=== PATIENT | female | born 1945 | race Caucasian/White ===

== ENCOUNTER 2022-11-09 09:58 | Inpatient (IN) | payer MEDICARE, SELFPAY ==
[2022-11-09] VITALS (10 sets, daily range): BP systolic 86–105; BP diastolic 48–61; PULSE 71–99; RESP 16–22; TEMP 36.2–36.8; O2SAT 90–95; BMI 34.3; BMI 35.2
--- NOTE | 2022-11-09 10:17 | XR_ITS ---
WS: [id number] Exam: XR chest 1V portable [id number] Date/Time of Exam: 11/09/2022 10:17 AM Reason For Exam: epigastric pain No priors. The lungs are fully inflated and clear. Areas of plaque atelectasis in both lower lung zones. Mild ca rdiac enlargement. No pleural effusions. The mediastinum is normal in contour. Surgical clips seen al nessa the left superior mediastinum. Bony elements are intact. XR/XR chest 1V portable [id number] IMPRESSION: 1. No acute cardiopulmonary finding. Mild cardiac enlargement.
[2022-11-09 10:34] LABS: Basophils # 0.1 10^3/uL (0.0-0.1); Basophils % 0.3 %; Eosinophils % 0.2 %; Hematocrit 35.8 % (37.0-47.0); Hemoglobin 11.4 g/dL (11.5-15.3); Mean Corpuscular HGB Conc 31.8 g/dL (30.0-36.0); Mean Corpuscular Hemoglobin 27.9 pg (28.0-34.0); Mean Corpuscular Volume 87.5 fl (81-99); Mean Platelet Volume 9.4 fL (7.4-10.4); Monocytes # 0.3 10^3/uL (0.2-0.9); Monocytes % 1.4 %; Neutrophils # 18.17 10^3/uL (1.8-7.7); Nucleated Red Blood Cells % 0.1 %; Platelet Count 650 10^3/cmm (130-400); Red Blood Count 4.09 10^6/uL (4.1-5.3); Red Cell Distribution Width 15.7 % (12.1-15.1); White Blood Count 19.7 10^3/uL (4.0-10.0)
--- NOTE | 2022-11-09 10:40 | ECG_ITS ---
[facility] Test Date: 2022-11-09 Pat Name: Carmen Bajwa Department: Room: Gender: Female Radio Journalist: : 1945 Requested By: Virgil Hendrix Order Number: [id number] Yanira MD: Dulce Leo M.D. Measurements Intervals [place] Rate: 86 P: 27 MO: 171 QRS: 0 QRSD: 104 T: 67 QT: 347 QTc: 415 Interpretive Statements SINUS RHYTHM ANTEROSEPTAL MYOCARDIAL INFARCTION , OF INDETERMINATE AGE [40+ ms Q WAVE IN V1-V4] No previous ECG available for comparison Electronically Signed On 11-09-2022 15:41:25 [employer] CARRIER ASSISTANT by Dulce Leo M.D. [id number]
[2022-11-09 10:48] LABS: Troponin(5th) Baseline 39 ng/L (0-10)
[2022-11-09 10:49] LABS: Alanine Aminotransferase 83 U/L (0-33); Albumin Level 2.5 g/dL (3.5-5.2); Alkaline Phosphatase 307 U/L (35-105); Anion Gap 16.2 (5-19); Aspartate Amino Transferase 45 U/L (0-32); Blood Urea Nitrogen 18 mg/dL (8-23); Calcium 9.2 mg/dL (8.5-10.5); Carbon Dioxide 26 mmol/L (22-29); Chloride 100 mmol/L (98-107); Globulin 3.6 g/dL (1.3-4.6); Glucose 81 mg/dL (65-115); Lipase 38 U/L (13-60); Osmolality Calculated 287 mOsm/kg (285-295); Potassium 4.2 mmol/L (3.5-5.1); Sodium 138 mmol/L (136-145); Total Bilirubin 0.7 mg/dL (0.15-1.2); Total Protein 6.1 g/dL (6.6-8.7)
--- NOTE | 2022-11-09 11:01 | CT_ITS ---
WS: [id number] CT ABDOMEN PELVIS TECHNIQUE: Contrast-enhanced CT of the abdomen and pelvis with coronal and sagittal reformatted image s. CLINICAL INFORMATION: Epigastric and LUQ abdominal pain with fever COMPARISON: None. DLP: 933.[address] scans at [facility] use at least one of these dose optimization techniques: automated e xposure control; mA and/or kV adjustment per patient size (includes targeted exams where dose is matc hed to clinical indication); or iterative reconstruction. FINDINGS: Multiple heterogeneous enhancing lesions in the LEFT hepatic lobe extending into the medial segment o f the RIGHT hepatic lobe suspicious for metastatic disease. Largest lesions measure approximately 3 t o 4 cm. In addition there is associated thrombosis involving the LEFT portal vein extending to the po rtal confluence. RIGHT portal vein appears patent. Findings likely due to tumor thrombus. Hepatomegaly. Spleen appears normal. Small esophageal hiatal hernia. Subsegmental atelectasis in the RIGHT middle lobe and RIGHT lower lobe. Lung bases are otherwise well aerated. Slight atelectasis in the lingula and LEFT lower lobe. Cardiomegaly. Fluid distended gallbladder otherwise normal in appearance. Fatty atrophy of the pancre as. Distal common bile duct appears normal. A few prominent enhancing lymph nodes in the bull hepati s largest measuring 8 to 9 mm. Normal caliber abdominal aorta. Celiac and SMA appear patent. Adrenal glands are normal. Normal renal parenchymal enhancement. No hydronephrosis. Sigmoid diverticulosis with mild colonic thickening and slight surrounding induration suspicious for mild or early diverticulitis. Trace amount of fluid and edema in the pelvis. No evidence of high-grad e small or large bowel obstruction. Tiny fat-containing umbilical hernia. Grade 1 anterolisthesis L4 on L5. Mild chronic anterior wedging lower thoracic and upper lumbar spine. No suspicious lytic or bl astic bony lesions. Small sclerotic focus in the LEFT sacrum likely benign bone island. No periaortic or retroperitoneal lymphadenopathy. No inguinal or pelvic lymphadenopathy. CT/CT abdomen pelvis w con* [id number] IMPRESSION: 1. Numerous heterogeneously enhancing lesions within the LEFT hepatic lobe ext ending into the medial segment RIGHT hepatic lobe suspicious for metastatic dis ease. 2. Occlusive thrombus involving the LEFT portal vein extending to the portal c onfluence with peripheral enhancement suspicious for tumor thrombus. 3. A few prominent lymph nodes in the bull hepatis with enhancement the large st measuring 8 to 9 mm. Recommend metastatic workup. 4. Small esophageal hiatal hernia. 5. Sigmoid diverticulosis with mild sigmoid colon thickening and slight surrou nding induration suspicious for mild or early diverticulitis. Trace free fluid in the pelvis. 6. No other suspicious findings. Notified MITUL Graham at 11/09/2022 12:47 PM.
--- NOTE | 2022-11-09 11:10 | W.ED.ABDPA2 ---
Documented by User: MITUL Graham 11/09/22 16:43 HPI - Abdominal Pain General: Chief Complaint: Abdominal Pain Stated Complaint: n/v/d Time Seen by Provider: 11/09/22 10:16 History of Present Illness: Patient is a 69-year-old female comes to the ED with abdominal pain. Symptoms started approximately 2 to 3 weeks ago. Abdominal pain is located in the epigastric region and radiates to her back and left upper quadrant of abdomen. She endorses some nausea but denies any episodes of emesis. Endorses malaise. She rates her abdominal pain currently a 5 out of 10. She has a decreased appetite but has been trying to drink plenty of fluids and staying hydrated. Her symptoms feel like they have worsened over the past 3 to 4 days. She feels very weak and fatigued. She has never had abdominal pain like this before. She reports chronic diarrhea but but denies any change in stool or frequency of stool. She was seen at clinic on October 29 and was diagnosed with a UTI and was put on an antibiotic. Past surgical history of a hysterectomy. Denies any other past abdominal surgeries. Patient uses 2 L of oxygen at night with CPAP but does not use or need oxygen during the day. Associated Symptoms: Reports nausea; Denies chills, constipation, diarrhea, dysuria, fever(s), hematochezia, hematuria and vomiting Review of Systems Const: Reports: fatigue; Denies: fever(s) or chills Eyes: Denies: change in vision or eye discomfort ENMT: Denies: throat pain, odynophagia, nasal discharge or nasal congestion Card: Denies: chest pain, palpitations, edema, swelling of feet/ankles, dyspnea on exertion or orthopnea Resp: Denies: dyspnea, productive cough or non-productive cough GI: Reports: abdominal pain and nausea; Denies: vomiting, diarrhea, constipation or hematochezia : Denies: flank pain, dysuria or hematuria Musc: Denies: neck pain, back pain or extremity swelling Skin/Breast: Denies: rash or new lesions Neuro: Denies: headache(s), numbness in extremities or weakness in extremities PFS ED PFSH: Medical History (Updated 11/14/22 @ 00:01 by PETRA Jhaveri) Adrenal insufficiency Chronic steroid use Depression Diverticulitis GERD (gastroesophageal reflux disease) Hypertension Lesion of liver ROCK (obstructive sleep apnea) Portal vein thrombosis Portal vein thrombosis Ulcerative colitis Surgical History (Updated 11/14/22 @ 00:01 by PETRA Jhaveri) H/O partial thyroidectomy History of hysterectomy Physical Exam Const: COMMON NORMALS: patient oriented x3 and alert GENERAL APPEARANCE: cooperative HENMT: COMMON NORMALS: normocephalic HEAD & SCALP: normocephalic MOUTH: Normal oral and palatal mucosa present THROAT: posterior oropharynx normal and uvula midline Neck/C-Spine: COMMON NORMALS: supple GENERAL: Yes normal visual inspection Resp: COMMON NORMALS: normal respiratory effort, No retractions, No use of accessory muscles and clear to auscultation bilaterally AUSCULTATION: clear to auscultation bilaterally Cardio: COMMON NORMALS: regular rate, regular rhythm, S1 normal heart sound present, S2 normal heart sound present, No gallops present (Cardio), No clicks present (Cardio), No murmurs present (Cardio) and Peripheral pulses 2+ throughout RATE: regular rate RHYTHM: regular rhythm HEART SOUNDS: S1 normal heart sound present and S2 normal heart sound present PERIPHERAL PULSES: Peripheral pulses 2+ throughout GI: COMMON NORMALS: Normal to inspection, nondistended, normoactive bowel sounds present, Soft to palpation and no masses AUSCULTATION: Yes normoactive bowel sounds PALPATION: Yes Soft to palpation and Yes Tenderness to palpation present (GI) Details: LUQ and other (Epigastric) : COMMON NORMALS: Yes no CVA tenderness BLADDER/KIDNEY EXAM: Yes no CVA tenderness Back/Pelvis: COMMON NORMALS: no CVA tenderness Extremity: COMMON NORMALS: normal to inspection Neuro: COMMON NORMALS: patient oriented x3 SENSORIUM/ORIENTATION: Yes alert GAIT: Yes Normal gait present Skin: GENERAL SKIN EXAM: dry skin Course Vital Signs: Vital signs: Vital Signs Temperature 98.4 F 11/13/22 15:02 Pulse Rate 60 11/13/22 15:31 Respiratory Rate 20 H 11/13/22 15:02 Blood Pressure 145/75 11/13/22 15:02 Pulse Oximetry 80 L 11/13/22 15:02 Oxygen Delivery Me thod 11/13/22 13:20 Oxygen Flow Rate 2 11/13/22 11:25 Fraction of Inspir ed Oxygen 21 11/12/22 09:56 MDM - Abdominal Pain Medical Decision Making Patient is a 77-year-old female comes to the ED with abdominal pain. Symptoms have been going on now for approximately 2 to 3 weeks and yesterday she developed a fever. Endorses nausea but denies any vomiting, dysuria, hematuria. Blood pressure low at 86/54 and she is requiring 2 L of oxygen here in the ED and O2 saturation is around 92%. Rest of vitals are stable. Patient is sitting comfortably in exam bed does not appear in any distress. She does have some tenderness to palpation of the epigastric and left upper quadrant of the abdomen. Rest of exam is benign. Blood cell count 19.7. Lactic 2.9. First troponin 39 and 2-hour troponin was 41. Chest x-ray shows no acute findings. EKG showed no acute infarcts. CT of abdomen pelvis showed numerous lesions of left hepatic lobe which is suspicious for metastatic disease. She also has occlusive thrombus involving the left portal vein extending to the portal confluence suspicious for tumor thrombus. CT also noted sigmoid diverticulosis with mild sigmoid colon thickening which is suspicious for mild or early diverticulitis. I discussed patient case with Dr. Alvarenga and patient is going to be admitted to hospital for further treatment and evaluation. Lab Data I reviewed the patient's lab results. 11/09/22 10:24 11/09/22 10:24 Labs/Radiology: Radiology Impressions Chest X-Ray 11/09/22 10:17 IMPRESSION: 1. No acute cardiopulmonary finding. Mild cardiac enlargement. Abdomen/Pelvis CT 11/09/22 11:01 IMPRESSION: 1. Numerous heterogeneously enhancing lesions within the LEFT hepatic lobe extending into the medial segment RIGHT hepatic lobe suspicious for metastatic disease. 2. Occlusive thrombus involving the LEFT portal vein extending to the portal confluence with peripheral enhancement suspicious for tumor thrombus. 3. A few prominent lymph nodes in the bull hepatis with enhancement the largest measuring 8 to 9 mm. Recommend metastatic workup. 4. Small esophageal hiatal hernia. 5. Sigmoid diverticulosis with mild sigmoid colon thickening and slight surrounding induration suspicious for mild or early diverticulitis. Trace free fluid in the pelvis. 6. No other suspicious findings. Notified MITUL Graham at 11/09/2022 12:47 PM. Liver Biopsy Ultrasound 11/13/22 10:00 IMPRESSION: 1. Uncomplicated liver biopsy of the mass in the LEFT lobe of the liver. 2. Specimen placed in formalin for pathology. Laboratory Results WBC 19.7 10^3/uL (4.0-10.0) H 11/09/22 10:24 RBC 4.09 10^6/uL (4.1-5.3) L 11/09/22 10:24 Hgb 11.4 g/dL (11.5-15.3) L 11/09/22 10:24 Hct 35.8 % (37.0-47.0) L 11/09/22 10:24 MCV 87.5 fl (81-99) 11/09/22 10:24 MCH 27.9 pg (28.0-34.0) L 11/09/22 10:24 MCHC 31.8 g/dL (30.0-36.0) 11/09/22 10:24 RDW 15.7 % (12.1-15.1) H 11/09/22 10:24 Plt Count 650 10^3/cmm (130-400) H 11/09/22 10:24 MPV 9.4 fL (7.4-10.4) 11/09/22 10:24 Neut % (Auto) 92.0 % 11/09/22 10:24 Lymph % (Auto) 5.0 % 11/09/22 10:24 [place] % (Auto) 1.4 % 11/09/22 10:24 Eos % (Auto) 0.2 % 11/09/22 10:24 Baso % (Auto) 0.3 % 11/09/22 10:24 Neut # (Auto) 18.17 10^3/uL (1.8-7.7) H 11/09/22 10:24 Lymph # (Auto) 1.0 10^3/uL (0.8-4.8) 11/09/22 10:24 [place] # (Auto) 0.3 10^3/uL (0.2-0.9) 11/09/22 10:24 Eos # (Auto) 0.0 10^3/uL (0.0-0.8) 11/09/22 10:24 Baso # (Auto) 0.1 10^3/uL (0.0-0.1) 11/09/22 10:24 Nucleated RBC % (auto) 0.1 % 11/09/22 10:24 Nucleated RBCs # 0.0 /100WBC 11/09/22 10:24 PT 15.20 SECONDS (12.1-14.9) H 11/09/22 13:31 PT Cancelled 11/09/22 13:31 INR 1.16 (0.8-1.2) 11/09/22 13:31 INR Cancelled 11/09/22 13:31 APTT 35.1 SECONDS (23.9-36.7) 11/09/22 13:31 Sodium 138 mmol/L (136-145) 11/09/22 10:24 Potassium 4.2 mmol/L (3.5-5.1) 11/09/22 10:24 Chloride 100 mmol/L (98-107) 11/09/22 10:24 Carbon Dioxide 26 mmol/L (22-29) 11/09/22 10:24 Anion Gap 16.2 (5-19) 11/09/22 10:24 BUN 18 mg/dL (8-23) 11/09/22 10:24 Creatinine 0.9 mg/dL (0.5-0.9) 11/09/22 10:24 GFR Calculation Not Reportable 11/09/22 10:24 Glucose 81 mg/dL (65-115) 11/09/22 10:24 Calculated Osmolality 287 mOsm/kg (285-295) 11/09/22 10:24 Lactic Acid 2.9 mmol/L (0.5-2.2) H 11/09/22 10:24 Lactic Acid (Sepsis) 1.7 mmol/L (0.5-2.2) 11/09/22 13:31 Calcium 9.2 mg/dL (8.5-10.5) 11/09/22 10:24 Iron 20 ug/dL (37-145) L 11/09/22 10:24 Iron 21 ug/dL (37-145) L 11/09/22 10:24 TIBC 174 mcg/dl 11/09/22 10:24 % Saturation 11.4 % (20-50) L 11/09/22 10:24 Unsat Iron Binding 154 ug/dL (112-347) 11/09/22 10:24 Ferritin 1882 ng/mL (15-150) H 11/09/22 10:24 Total Bilirubin 0.7 mg/dL (0.15-1.2) 11/09/22 10:24 GGT 126 U/L (5-36) H 11/09/22 10:24 AST 45 U/L (0-32) H 11/09/22 10:24 ALT 83 U/L (0-33) H 11/09/22 10:24 Alkaline Phosphatase 307 U/L (35-105) H 11/09/22 10:24 Troponin T Baseline 39 ng/L (0-10) H 11/09/22 10:24 Troponin T 120 Minute 41.11 ng/L (0-10) H 11/09/22 12:20 Delta Troponin T 2.11 ABS# (0-10) 11/09/22 12:20 Total Protein 6.1 g/dL (6.6-8.7) L 11/09/22 10:24 Albumin 2.5 g/dL (3.5-5.2) L 11/09/22 10:24 Globulin 3.6 g/dL (1.3-4.6) 11/09/22 10:24 Triglycerides 126 mg/dL (0-150) 11/09/22 10:24 Cholesterol 90 mg/dL (0-200) 11/09/22 10:24 LDL Cholesterol, Calc 43 mg/dL (50-129) L 11/09/22 10:24 HDL Cholesterol 22 mg/dL (60-100) L 11/09/22 10:24 LDL/HDL Ratio 1.95 RATIO (0.00-3.22) 11/09/22 10:24 Cholesterol/HDL Ratio 4.09 mg/dL (0.0-4.40) 11/09/22 10:24 Lipase 38 U/L (13-60) 11/09/22 10:24 Tumor Marker AFP 2.5 ng/mL (0-8.3) 11/09/22 10:24 Carcinoembryonic Ag 2.3 ng/mL (0.0-4.7) 11/09/22 10:24 CA 19-9 Antigen 4.91 U/mL (0-35) 11/09/22 10:24 Procalcitonin 2.94 ng/mL (0-0.5) H 11/09/22 10:24 TSH 8.71 uIU/mL (0.27-4.20) H 11/09/22 10:24 Urine Color Barb (Yellow) 11/09/22 12:52 Urine Appearance Cloudy (CLEAR) A 11/09/22 12:52 Urine pH 5 (5-7) 11/09/22 12:52 Ur Specific [place] 1.000 (1.005-1.030) L 11/09/22 12:52 Urine Protein 1+ (Negative) H 11/09/22 12:52 Urine Glucose (UA) Norm (Normal) 11/09/22 12:52 Urine Ketones 1+ (Negative) H 11/09/22 12:52 Urine Blood Trace (Negative) H 11/09/22 12:52 Urine Nitrate Negative (Negative) 11/09/22 12:52 Urine Bilirubin 1+ (Negative) H 11/09/22 12:52 Urine Urobilinogen 1 mg/dL (Negative) H 11/09/22 12:52 Ur Leukocyte Esterase Trace (Negative) H 11/09/22 12:52 Urine RBC 0-4 /hpf (0-2) H 11/09/22 12:52 Urine WBC 5-10 /hpf (0-5) H 11/09/22 12:52 Ur Squamous Epith Cells 5-10 /hpf (0-5) H 11/09/22 12:52 Amorphous Sediment Not Reportable 11/09/22 12:52 Urine Bacteria Trace /hpf (NONE) 11/09/22 12:52 Hepatitis A IgM Ab Non-reactive (Nonreactive) 11/09/22 13:31 Hep Bs Antigen Non-reactive (Nonreactive) 11/09/22 13:31 Hep Bs Antibody 3.5 (11.5-1000) L 11/09/22 13:31 Hep B Core Total Ab Non-reactive (Nonreactive) 11/09/22 13:31 Hepatitis C Antibody Non-reactive (Nonreactive) 11/09/22 13:31 EKG Data EKG 1: EKG interpretation date: 11/09/22 Interpretation: Sinus rhythm, 83 bpm, no ST segment elevation or depression seen. Discharge Plan Discharge Patient Disposition: Placed in Observation Admit Provider: Jessica Longoria Clinical Impression: Diverticulitis, Lesion of liver, Portal vein thrombosis Discharge Diet: Cardiac Discharge Activity: Increase activity as tolerated Sign Out Sign Out Data: Patient Sign Out occurred on 11/09/22 at 13:09. Patient's care was discussed, and care was transferred from to Giovanny Alvarenga MD. Coding Level of Care Code ED Health And Physical Education Teacher for Chg Fwd Exam Comprehensive Documented by User: Giovanny Alvarenga MD 11/24/22 18:50 HPI - Abdominal Pain General: Chief Complaint: Abdominal Pain Stated Complaint: n/v/d Time Seen by Provider: 11/09/22 10:16 PFSH ED PFSH: Medical History (Updated 11/14/22 @ 00:01 by PETRA Jhaveri) Adrenal insufficiency Chronic steroid use Depression Diverticulitis GERD (gastroesophageal reflux disease) Hypertension Lesion of liver ROCK (obstructive sleep apnea) Portal vein thrombosis Portal vein thrombosis Ulcerative colitis Surgical History (Updated 11/14/22 @ 00:01 by PETRA Jhaveri) H/O partial thyroidectomy History of hysterectomy Course Vital Signs: Vital signs: Vital Signs Temperature 98.4 F 11/13/22 15:02 Pulse Rate 60 11/13/22 15:31 Respiratory Rate 20 H 11/13/22 15:02 Blood Pressure 145/75 11/13/22 15:02 Pulse Oximetry 80 L 11/13/22 15:02 Oxygen Delivery Me thod 11/13/22 13:20 Oxygen Flow Rate 2 11/13/22 11:25 Fraction of Inspir ed Oxygen 21 11/12/22 09:56 MDM - Abdominal Pain Medical Decision Making Patient is a 77-year-old female comes to the ED with abdominal pain. Symptoms have been going on now for approximately 2 to 3 weeks and yesterday she developed a fever. Endorses nausea but denies any vomiting, dysuria, hematuria. Blood pressure low at 86/54 and she is requiring 2 L of oxygen here in the ED and O2 saturation is around 92%. Rest of vitals are stable. Patient is sitting comfortably in exam bed does not appear in any distress. She does have some tenderness to palpation of the epigastric and left upper quadrant of the abdomen. Rest of exam is benign. Blood cell count 19.7. Lactic 2.9. First troponin 39 and 2-hour troponin was 41. Chest x-ray shows no acute findings. EKG showed no acute infarcts. CT of abdomen pelvis showed numerous lesions of left hepatic lobe which is suspicious for metastatic disease. She also has occlusive thrombus involving the left portal vein extending to the portal confluence suspicious for tumor thrombus. CT also noted sigmoid diverticulosis with mild sigmoid colon thickening which is suspicious for mild or early diverticulitis. I discussed patient case with Dr. Alvarenga and patient is going to be admitted to hospital for further treatment and evaluation. I discussed this case with MITUL Graham. I reviewed documentation, labs, imaging. Giovanny Alvarenga MD Emergency Medicine Lab Data 11/09/22 10:24 11/09/22 10:24 Labs/Radiology: Radiology Impressions Chest X-Ray 11/09/22 10:17 IMPRESSION: 1. No acute cardiopulmonary finding. Mild cardiac enlargement. Abdomen/Pelvis CT 11/09/22 11:01 IMPRESSION: 1. Numerous heterogeneously enhancing lesions within the LEFT hepatic lobe extending into the medial segment RIGHT hepatic lobe suspicious for metastatic disease. 2. Occlusive thrombus involving the LEFT portal vein extending to the portal confluence with peripheral enhancement suspicious for tumor thrombus. 3. A few prominent lymph nodes in the bull hepatis with enhancement the largest measuring 8 to 9 mm. Recommend metastatic workup. 4. Small esophageal hiatal hernia. 5. Sigmoid diverticulosis with mild sigmoid colon thickening and slight surrounding induration suspicious for mild or early diverticulitis. Trace free fluid in the pelvis. 6. No other suspicious findings. Notified MITUL Graham at 11/09/2022 12:47 PM. Liver Biopsy Ultrasound 11/13/22 10:00 IMPRESSION: 1. Uncomplicated liver biopsy of the mass in the LEFT lobe of the liver. 2. Specimen placed in formalin for pathology. Laboratory Results WBC 19.7 10^3/uL (4.0-10.0) H 11/09/22 10:24 RBC 4.09 10^6/uL (4.1-5.3) L 11/09/22 10:24 Hgb 11.4 g/dL (11.5-15.3) L 11/09/22 10:24 Hct 35.8 % (37.0-47.0) L 11/09/22 10:24 MCV 87.5 fl (81-99) 11/09/22 10:24 MCH 27.9 pg (28.0-34.0) L 11/09/22 10:24 MCHC 31.8 g/dL (30.0-36.0) 11/09/22 10:24 RDW 15.7 % (12.1-15.1) H 11/09/22 10:24 Plt Count 650 10^3/cmm (130-400) H 11/09/22 10:24 MPV 9.4 fL (7.4-10.4) 11/09/22 10:24 Neut % (Auto) 92.0 % 11/09/22 10:24 Lymph % (Auto) 5.0 % 11/09/22 10:24 [place] % (Auto) 1.4 % 11/09/22 10:24 Eos % (Auto) 0.2 % 11/09/22 10:24 Baso % (Auto) 0.3 % 11/09/22 10:24 Neut # (Auto) 18.17 10^3/uL (1.8-7.7) H 11/09/22 10:24 Lymph # (Auto) 1.0 10^3/uL (0.8-4.8) 11/09/22 10:24 [place] # (Auto) 0.3 10^3/uL (0.2-0.9) 11/09/22 10:24 Eos # (Auto) 0.0 10^3/uL (0.0-0.8) 11/09/22 10:24 Baso # (Auto) 0.1 10^3/uL (0.0-0.1) 11/09/22 10:24 Nucleated RBC % (auto) 0.1 % 11/09/22 10:24 Nucleated RBCs # 0.0 /100WBC 11/09/22 10:24 PT 15.20 SECONDS (12.1-14.9) H 11/09/22 13:31 PT Cancelled 11/09/22 13:31 INR 1.16 (0.8-1.2) 11/09/22 13:31 INR Cancelled 11/09/22 13:31 APTT 35.1 SECONDS (23.9-36.7) 11/09/22 13:31 Sodium 138 mmol/L (136-145) 11/09/22 10:24 Potassium 4.2 mmol/L (3.5-5.1) 11/09/22 10:24 Chloride 100 mmol/L (98-107) 11/09/22 10:24 Carbon Dioxide 26 mmol/L (22-29) 11/09/22 10:24 Anion Gap 16.2 (5-19) 11/09/22 10:24 BUN 18 mg/dL (8-23) 11/09/22 10:24 Creatinine 0.9 mg/dL (0.5-0.9) 11/09/22 10:24 GFR Calculation Not Reportable 11/09/22 10:24 Glucose 81 mg/dL (65-115) 11/09/22 10:24 Calculated Osmolality 287 mOsm/kg (285-295) 11/09/22 10:24 Lactic Acid 2.9 mmol/L (0.5-2.2) H 11/09/22 10:24 Lactic Acid (Sepsis) 1.7 mmol/L (0.5-2.2) 11/09/22 13:31 Calcium 9.2 mg/dL (8.5-10.5) 11/09/22 10:24 Iron 20 ug/dL (37-145) L 11/09/22 10:24 Iron 21 ug/dL (37-145) L 11/09/22 10:24 TIBC 174 mcg/dl 11/09/22 10:24 % Saturation 11.4 % (20-50) L 11/09/22 10:24 Unsat Iron Binding 154 ug/dL (112-347) 11/09/22 10:24 Ferritin 1882 ng/mL (15-150) H 11/09/22 10:24 Total Bilirubin 0.7 mg/dL (0.15-1.2) 11/09/22 10:24 GGT 126 U/L (5-36) H 11/09/22 10:24 AST 45 U/L (0-32) H 11/09/22 10:24 ALT 83 U/L (0-33) H 11/09/22 10:24 Alkaline Phosphatase 307 U/L (35-105) H 11/09/22 10:24 Troponin T Baseline 39 ng/L (0-10) H 11/09/22 10:24 Troponin T 120 Minute 41.11 ng/L (0-10) H 11/09/22 12:20 Delta Troponin T 2.11 ABS# (0-10) 11/09/22 12:20 Total Protein 6.1 g/dL (6.6-8.7) L 11/09/22 10:24 Albumin 2.5 g/dL (3.5-5.2) L 11/09/22 10:24 Globulin 3.6 g/dL (1.3-4.6) 11/09/22 10:24 Triglycerides 126 mg/dL (0-150) 11/09/22 10:24 Cholesterol 90 mg/dL (0-200) 11/09/22 10:24 LDL Cholesterol, Calc 43 mg/dL (50-129) L 11/09/22 10:24 HDL Cholesterol 22 mg/dL (60-100) L 11/09/22 10:24 LDL/HDL Ratio 1.95 RATIO (0.00-3.22) 11/09/22 10:24 Cholesterol/HDL Ratio 4.09 mg/dL (0.0-4.40) 11/09/22 10:24 Lipase 38 U/L (13-60) 11/09/22 10:24 Tumor Marker AFP 2.5 ng/mL (0-8.3) 11/09/22 10:24 Carcinoembryonic Ag 2.3 ng/mL (0.0-4.7) 11/09/22 10:24 CA 19-9 Antigen 4.91 U/mL (0-35) 11/09/22 10:24 Procalcitonin 2.94 ng/mL (0-0.5) H 11/09/22 10:24 TSH 8.71 uIU/mL (0.27-4.20) H 11/09/22 10:24 Urine Color Barb (Yellow) 11/09/22 12:52 Urine Appearance Cloudy (CLEAR) A 11/09/22 12:52 Urine pH 5 (5-7) 11/09/22 12:52 Ur Specific [place] 1.000 (1.005-1.030) L 11/09/22 12:52 Urine Protein 1+ (Negative) H 11/09/22 12:52 Urine Glucose (UA) Norm (Normal) 11/09/22 12:52 Urine Ketones 1+ (Negative) H 11/09/22 12:52 Urine Blood Trace (Negative) H 11/09/22 12:52 Urine Nitrate Negative (Negative) 11/09/22 12:52 Urine Bilirubin 1+ (Negative) H 11/09/22 12:52 Urine Urobilinogen 1 mg/dL (Negative) H 11/09/22 12:52 Ur Leukocyte Esterase Trace (Negative) H 11/09/22 12:52 Urine RBC 0-4 /hpf (0-2) H 11/09/22 12:52 Urine WBC 5-10 /hpf (0-5) H 11/09/22 12:52 Ur Squamous Epith Cells 5-10 /hpf (0-5) H 11/09/22 12:52 Amorphous Sediment Not Reportable 11/09/22 12:52 Urine Bacteria Trace /hpf (NONE) 11/09/22 12:52 Hepatitis A IgM Ab Non-reactive (Nonreactive) 11/09/22 13:31 Hep Bs Antigen Non-reactive (Nonreactive) 11/09/22 13:31 Hep Bs Antibody 3.5 (11.5-1000) L 11/09/22 13:31 Hep B Core Total Ab Non-reactive (Nonreactive) 11/09/22 13:31 Hepatitis C Antibody Non-reactive (Nonreactive) 11/09/22 13:31 Discharge Plan Discharge Patient Disposition: Placed in Observation Admit Provider: Jessica Longoria Clinical Impression: Diverticulitis, Lesion of liver, Portal vein thrombosis Discharge Diet: Cardiac Discharge Activity: Increase activity as tolerated Sign Out Sign Out Data: Patient Sign Out occurred on 11/09/22 at 13:09. Patient's care was discussed, and care was transferred from to Giovanny Alvarenga MD. Coding Level of Care Code ED Health And Physical Education Teacher for Chg Fwd Exam Comprehensive
[2022-11-09] MEDS: sodium chloride 0.9% 1,000 ML 999 ML IV ×2 (11:26→14:47)
[2022-11-09 11:49] LABS: Lactic Sepsis W/Reflex 2.9 mmol/L (0.5-2.2)
[2022-11-09] MEDS: iohexol 350 mg/mL 500 mL Btl (per mL) IV (12:14)
--- NOTE | 2022-11-09 12:17 | ECG_ITS ---
[facility] Test Date: 2022-11-09 Pat Name: Carmen Bajwa Department: Room: Gender: Female Aircraft Engine Specialist: : 1945 Requested By: Virgil Hendrix Order Number: [id number] Yanira MD: Dulce Leo M.D. Measurements Intervals [place] Rate: 83 P: 63 DC: 196 QRS: 8 QRSD: 108 T: 79 QT: 370 QTc: 436 Interpretive Statements SINUS RHYTHM LOW QRS VOLTAGE IN PRECORDIAL LEADS [QRS DEFLECTION < 1.0 mV IN CHEST LEADS] ANTEROSEPTAL MYOCARDIAL INFARCTION , OF INDETERMINATE AGE [40+ ms Q WAVE IN V1-V4] Compared to ECG 11/09/2022 10:40:42 Low QRS voltage now present Myocardial infarct finding still present Electronically Signed On 11-09-2022 15:47:27 MEDICAL SOCIAL CONSULTANT by Dulce Leo M.D. [id number]
[2022-11-09 12:44] LABS: Troponin 5 2HR 41.11 ng/L (0-10)
[2022-11-09 12:45] LABS: Troponin 5 2HR Delta 2.11 ABS# (0-10)
[2022-11-09 13:20] LABS: Reflex Lactate Order REFLEX LACTIC ORDERD
[2022-11-09] MEDS: enoxaparin 100 mg/mL Syringe 90 MG SUBCUT (13:48)
[2022-11-09] MEDS: ciprofloxacin 400 MG/200 ML PREMIX 200 MG IV ×2 (13:48→23:21)
[2022-11-09 13:50] LABS: INR 1.16 (0.8-1.2)
[2022-11-09 13:51] LABS: Partial Thromboplastin Time 35.1 SECONDS (23.9-36.7)
[2022-11-09 13:54] LABS: Lactic Acid level (Lactate) 1.7 mmol/L (0.5-2.2)
--- NOTE | 2022-11-09 14:17 | P.HP_ITS ---
Providers/Chief Complaint Chief Complaint: n/v/d History of Present Illness Carmen Bajwa is a 77 year old female with past medical history of hypertension, chronic steroid use, partial thyroidectomy, hysterectomy, bilateral mastectomy due to fibrocystic disease of breast, obstructive sleep apnea, osteoarthritis, GERD, depression, ulcerative colitis, chronic diarrhea presented to the doctor with complaints of abdominal pain that is mainly in the epigastric region and radiates to the back and left upper quadrant of the abdomen. She also reports some nausea and says her pain is about 5 out of 10. She has been having a decreased appetite but has been trying to drink lots of fluids and stay hydrated. Her symptoms have worsened over the last 3 to 4 days and she feels very weak and fatigued. She also has a history of chronic diarrhea but does not report a change in the frequency of stool. She says she recently was diagnosed with a UTI a week ago and was put on an antibiotic. She uses 2 L of oxygen at night and CPAP but does not require oxygen during the day. She said her abdominal pain mainly started 2 to 3 weeks ago. ED course: On arrival blood pressure 86/54 heart rate 18, pulse 81, temperature 97.1, 200 nasal cannula. Lactic acid 2.9, WBC 19.7, troponin 39, 41. Chest x- ray shows no acute findings. EKG shows no acute ischemic changes. CT abdomen pelvis did show numerous heterogeneously enhancing lesions within left hepatic lobe extending into the medial segment right hepatic lobe suspicious for metastatic disease. Occlusive thrombus involving left portal vein extending to portal confluence with peripheral enhancement suspicious for tumor thrombus. A lso a few prominent lymph nodes in bull hepatis with enhancement the largest measuring 8 to 9 mm. Small esophageal hiatal hernia. Sigmoid diverticulosis with mild sigmoid colon thickening and slight surrounding induration suspicious for mild or early diverticulitis. Trace free fluid in the pelvis. Creatinine 0.9. AST 45, ALT 83, alkaline phosphatase 307. Albumin 2.5. Hemoglobin 11.4, RDW 15.7, platelet count 650. CT shows distal common bile duct appearing normal. Gallbladder fully distended. Patient given 1 L normal saline bolus, started on ciprofloxacin and Flagyl and given Lovenox 90 subcu x1. Medications/Allergies Home Medications Medication Instructions Recorded Confirmed Last Taken Type amlodipine 5 mg tablet 5 mg PO DAILY 11/09/22 11/09/22 11/09/22 History atorvastatin 40 mg tablet 40 mg PO QPM 11/09/22 11/09/22 11/08/22 History budesonide 9 mg capsule,extended 27 mg PO DAILY 11/09/22 11/09/22 11/09/22 History release carvedilol 25 mg tablet 25 mg PO BID 11/09/22 11/09/22 11/09/22 History celecoxib 200 mg capsule 200 mg PO BID 11/09/22 11/09/22 11/09/22 History cholecalciferol (vitamin D3) 50 50 mcg PO DAILY 11/09/22 11/09/22 11/09/22 History mcg (2,000 unit) capsule (Vitamin D3) coQ10 (ubiquinol) 100 mg capsule 100 mg PO BID 11/09/22 11/09/22 11/09/22 Hi story duloxetine 60 mg capsule,delayed 60 mg PO DAILY 11/09/22 11/09/22 11/09/22 History release ezetimibe 10 mg tablet 10 mg PO DAILY 11/09/22 11/09/22 11/09/22 History levothyroxine 75 mcg tablet 75 mcg PO DAILY 11/09/22 11/09/22 11/09/22 History (Synthroid) magnesium 200 mg tablet 200 mg PO DAILY 11/09/22 11/09/22 11/09/22 History olmesartan 40 mg tablet 40 mg PO DAILY 11/09/22 11/09/22 11/08/22 History pantoprazole 40 mg tablet,delayed 40 mg PO DAILY 11/09/22 11/09/22 11/09/22 History release Allergies Allergy/AdvReac Type Severity Reaction Status Date / Time No Known Allergies Allergy Unverified 11/09/22 11:08 PFSH Acute PFSH: Medical History (Updated 11/09/22 @ 15:19 by Jessica Longoria MD) Hypertension Surgical History (Updated 11/09/22 @ 15:19 by Jessica Longoria MD) History of hysterectomy Vitals/I&O/Wt Last Vital Signs Temp 97.1 F L 11/09/22 10:02 Pulse 81 11/09/22 12:42 Resp 18 11/09/22 10:02 BP 86/54 11/09/22 12:42 Pulse Ox 95 11/09/22 11:47 O2 Del Method 11/09/22 11:47 O2 Flow Rate 2 11/09/22 11:47 Weight last 48 hrs Weight 90.718 kg Physical Exam Narrative: General: Alert oriented x3, patient seen laying in bed on 2L NC HEENT: Normocephalic, atraumatic, EOMI, breathing comfortably Cardio: Regular rate rhythm, normal S1-S2, Respiratory: Good bilateral air entry, no wheezes no rhonchi appreciated GI: Abdomen soft, nontender, nondistended, bowel sounds + Behavior: Appropriate and cooperative Extremities: Pulses 2+, no edema, no cyanosis Sepsis: Is patient septic: Yes Focused sepsis exam performed: Yes Focused sepsis exam: Temp 97.1 BP 86/50 HR 99 Lactic acid 2.9 Date exam was performed: 11/09/22 Data 11/09/22 10:24 11/09/22 10:24 Micro: Microbiology 11/09/22 11:50 Blood Culture - Preliminary Blood SPECIMEN COLLECTED 11/09/22 11:42 Blood Culture - Preliminary Blood SPECIMEN COLLECTED A&P Assessment and plan (1) Portal vein thrombosis: (2) Lesion of liver: (3) Diverticulitis: (4) Ulcerative colitis: (5) GERD (gastroesophageal reflux disease): (6) ROCK (obstructive sleep apnea): (7) Depression: (8) Chronic steroid use: (9) Adrenal insufficiency: Plan #Sepsis secondary to diverticulitis versus unknown source (hypotension, tachycardia, low temp, O2 requirement, lactic acid) #Generalized weakness and fatigue #Abdominal pain #Chronic diarrhea #Liver lesions, most likely metastatic disease? #Portal vein thrombosis #Hypertension #Hypothyroidism #Obstructive sleep apnea #Chronic steroid use ? Continue on IV fluids 125 cc/h. Give additional NS bolus. ? Patient will need biopsy of liver lesion for diagnosis ? Continue on therapeutic Lovenox twice daily ? Check INR ? Check hepatitis profile ? Hold amlodipine, atorvastatin, carvedilol, celecoxib ? Continue duloxetine ? Hold ezetimibe ? Continue levothyroxine ? Hold olmesartan ? Continue pantoprazole ? Continue CPAP at night with oxygen ? Check blood culture, urine culture, sputum culture gram stain ? Continue to trend lactic acid -Check iron panel, TIBC, ferritin ? Check CA 19?9, CEA, AFP -Placed on hydrocortisone 100 3 times daily and then de-escalate to 50 every 6. -Patient will need oncology follow-up at discharge. Full code DVT prophylaxis: On therapeutic Lovenox Attestations Medical Necessity Statement*: Will cross > 2 midnight stay for mgmt of divirticulitis, abdominal pain, liver lesions, portal vein thrombosis. Coding Level of Care Code Acute Logistics Support for Chg Fwd Medical Decision Making High Complexity Diagnoses Portal vein thrombosis I81 Lesion of liver K76.9 Diverticulitis K57.92 Ulcerative colitis K51.90 GERD (gastroesophageal reflux disease) K21.9 ROCK (obstructive sleep apnea) G47.33 Depression F32.A Chronic steroid use Adrenal insufficiency E27.40 Time Spent (min) 70
[2022-11-09 14:29] LABS: Glucose Urine UA Norm (Normal); Protein Urine 1+ (Negative); Urine Appearance Cloudy (CLEAR); Urine Color Amber (Yellow); pH Urine 5 (5-7)
[2022-11-09 14:30] LABS: Add Urine Microscopic? YES; Bacteria Urine TRACE /hpf; Bilirubin Urine 1+ (Negative); Blood Urine Trace (Negative); Ketones Urine 1+ (Negative); Leukocyte Esterase Urine Trace (Negative); Nitrate Urine Negative (Negative); RBC Urine 0-4 /hpf (0-2); Urobilinogen Urine 1 mg/dL (Negative)
[2022-11-09] MEDS: pantoprazole 40 mg SDV IVP (14:46)
[2022-11-09 15:08] LABS: Gamma Glutamyl Transferase 126 U/L (5-36)
[2022-11-09] MEDS: metroNIDAZOLE IV 500 MG/100 ML PREMIX 100 MG IV ×2 (15:09→21:59)
[2022-11-09 15:18] LABS: Cancer Antigen 19 9 4.91 U/mL (0-35); Procalcitonin 2.94 ng/mL (0-0.5)
[2022-11-09 15:19] LABS: Chol HDL Ratio 4.09 mg/dL (0.0-4.40); Cholesterol 90 mg/dL (0-200); HDL Cholesterol 22 mg/dL (60-100); Iron 21 ug/dL (37-145); LDL Cholesterol Calculated 43 mg/dL (50-129); LDL HDL Ratio 1.95 RATIO (0.00-3.22); Thyroid Stimulating Hormone 8.71 uIU/mL (0.27-4.20); Triglycerides 126 mg/dL (0-150)
[2022-11-09 15:30] LABS: Iron 20 ug/dL (37-145); Percent Saturation 11.4 % (20-50); Total Iron Binding Capacity 174 mcg/dl; Unsaturated Iron Binding 154 ug/dL (112-347)
[2022-11-09 15:39] LABS: Hepatitis A Antibody IgM Non-Reactive (Nonreactive); Hepatitis B Core AB, Total Non-Reactive (Nonreactive); Hepatitis B Surface AB 3.5 (11.5-1000); Hepatitis B Surface Antigen Non-Reactive (Nonreactive); Hepatitis C Virus Antibody Non-Reactive (Nonreactive)
[2022-11-09 15:42] LABS: Ferritin 1882 ng/mL (15-150)
[2022-11-09 16:08] LABS: Carcinoembryonic Antigen 2.3 ng/mL (0.0-4.7); Tumor Marker Alpha Fetoprotein 2.5 ng/mL (0-8.3)
--- NOTE | 2022-11-09 16:17 | ECG_ITS ---
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 Measurements Intervals [place] Rate: 71 P: 62 [place]: 179 QRS: -18 QRSD: 107 T: 73 QT: 396 QTc: 431 Interpretive Statements SINUS RHYTHM LOW QRS VOLTAGE IN PRECORDIAL LEADS [QRS DEFLECTION < 1.0 mV IN CHEST LEADS] SEPTAL MYOCARDIAL INFARCTION , PROBABLY OLD [40+ ms Q WAVE IN V1/V2] Compared to ECG 11/09/2022 12:42:10 No significant changes Electronically Signed On 11-09-2022 17:34:09 RADIATOR CORE TESTER by Nerissa Cline M.D. [id number]
[2022-11-09] MEDS: sodium chloride 0.9% 1,000 ML 125 ML IV (16:42)
[2022-11-09] MEDS: hydrocortisone 100 mg/2 mL SDV IVP (17:05)
[2022-11-09 17:46] LABS: Adenovirus Not Detected (NOT DETECT); Chlamydia Pneumoniae Not Detected (NOT DETECT); Coronavirus 229E,HKU1,NL63,OC4 Not Detected (NOT DETECT); Human Metapneumovirus Not Detected (NOT DETECT); Human Rhinovirus/Enterovirus Not Detected (NOT DETECT); Influenza A Not Detected (NOT DETECT); Influenza A H1 Not Detected (NOT DETECT); Influenza A H1-2009 Not Detected (NOT DETECT); Influenza A H3 Not Detected (NOT DETECT); Influenza B Not Detected (NOT DETECT); Mycoplasma Pneumoniae Not Detected (NOT DETECT); Parainfluenza Virus Type 1 Not Detected (NOT DETECT); Parainfluenza Virus Type 2 Not Detected (NOT DETECT); Parainfluenza Virus Type 3 Not Detected (NOT DETECT); Parainfluenza Virus Type 4 Not Detected (NOT DETECT); Respiratory Syncytial Virus A Not Detected (NOT DETECT); Respiratory Syncytial Virus B Not Detected (NOT DETECT); SARS-COV-2 Not Detected (NOT DETECT)
[2022-11-09 18:06] LABS: Troponin 5 6HR 23.14 ng/L (0-10)
--- NOTE | 2022-11-09 18:07 | PC.NURSE ---
Gamez: Spoke with Dr. Longoria, pt is ad edwin and at this time is producing good urine output. Per Dr. Lagos measure output and do not place gamez at this time.
[2022-11-09 18:08] LABS: Lactic Sepsis W/Reflex 1.5 mmol/L (0.5-2.2)
[2022-11-10] VITALS (7 sets, daily range): BP systolic 110–133; BP diastolic 64–79; PULSE 71–83; RESP 16–18; TEMP 36.6–36.9; O2SAT 85–92
[2022-11-10] MEDS: hydrocortisone 100 mg/2 mL SDV IVP ×2 (00:58→09:01)
[2022-11-10] MEDS: sodium chloride 0.9% 1,000 ML 125 ML IV ×3 (02:45→17:48)
[2022-11-10 03:49] LABS: Basophils # 0.1 10^3/uL (0.0-0.1); Basophils % 0.3 %; Hematocrit 28.6 % (37.0-47.0); Hemoglobin 9.2 g/dL (11.5-15.3); Lymphocytes # 1.5 10^3/uL (0.8-4.8); Lymphocytes % 4.5 %; Mean Corpuscular HGB Conc 32.2 g/dL (30.0-36.0); Mean Corpuscular Hemoglobin 27.9 pg (28.0-34.0); Mean Corpuscular Volume 86.7 fl (81-99); Mean Platelet Volume 9.3 fL (7.4-10.4); Monocytes # 0.6 10^3/uL (0.2-0.9); Monocytes % 1.6 %; Neutrophils # 30.86 10^3/uL (1.8-7.7); Neutrophils % 91.7 %; Nucleated Red Blood Cells % 0 %; Platelet Count 644 10^3/cmm (130-400); Red Cell Distribution Width 15.8 % (12.1-15.1)
[2022-11-10 03:59] LABS: White Blood Count 33.7 10^3/uL (4.0-10.0)
[2022-11-10 04:22] LABS: Alanine Aminotransferase 71 U/L (0-33); Albumin Level 2.3 g/dL (3.5-5.2); Alkaline Phosphatase 253 U/L (35-105); Anion Gap 12.2 (5-19); Aspartate Amino Transferase 38 U/L (0-32); Blood Urea Nitrogen 16 mg/dL (8-23); Calcium 8.7 mg/dL (8.5-10.5); Carbon Dioxide 26 mmol/L (22-29); Chloride 108 mmol/L (98-107); Globulin 3.3 g/dL (1.3-4.6); Glucose 123 mg/dL (65-115); Magnesium 1.9 mg/dL (1.7-2.3); Osmolality Calculated 297 mOsm/kg (285-295); Potassium 4.2 mmol/L (3.5-5.1); Sodium 142 mmol/L (136-145); Total Bilirubin 0.3 mg/dL (0.15-1.2); Total Protein 5.6 g/dL (6.6-8.7)
[2022-11-10] MEDS: enoxaparin 100 mg/mL Syringe 90 MG SUBCUT ×2 (05:26→17:48)
[2022-11-10] MEDS: metroNIDAZOLE IV 500 MG/100 ML PREMIX 100 MG IV ×3 (05:26→21:59)
[2022-11-10] MEDS: duloxetine 60 mg Capsule PO (09:01)
[2022-11-10] MEDS: levothyroxine 75 mcg Tablet PO (09:01)
[2022-11-10] MEDS: ciprofloxacin 400 MG/200 ML PREMIX 200 MG IV ×2 (12:09→23:26)
--- NOTE | 2022-11-10 13:49 | PM.PN ---
Subjective Subjective: Seen this morning. Patient is starting to feel better. WBC count 33,000. Hemoglobin 9.2, platelets 644. Patient states that she has had high WBC count in the past however has not been diagnosed with lymphoma or leukemia in the past. She is unsure why this is the case. She said something similar happen when she was about to have her knee surgery a long time ago. She feels clinically better. She also was able to obtain a stool sample for us this AM. Vitals/I&O/Wt Last Vital Signs Temp 98.5 F 11/10/22 11:16 Pulse 77 11/10/22 11:16 Resp 16 11/10/22 11:16 BP 131/79 11/10/22 11:16 Pulse Ox 90 11/10/22 11:16 O2 Del Method 11/10/22 11:16 O2 Flow Rate 2 11/10/22 08:00 11/09/22 11/10/22 11/10/22 22:59 06:59 14:59 Intake Total 2660 / 2660 1735.417 / 4395.417 660.417 / 660.417 Output Total 300 / 300 600 / 900 Balance 2360 / 2360 1135.417 / 3495.417 660.417 / 660.417 Weight last 48 hrs Weight 92.986 kg Weight 90.718 kg Physical Exam Narrative: General: Alert oriented x3, patient seen laying in bed on 2L NC HEENT: Normocephalic, atraumatic, EOMI, breathing comfortably Cardio: Regular rate rhythm, normal S1-S2, Respiratory: Good bilateral air entry, no wheezes no rhonchi appreciated GI: Abdomen soft, nontender, nondistended, bowel sounds + Behavior: Appropriate and cooperative Extremities: Pulses 2+, no edema, no cyanosis Data 11/10/22 03:28 11/10/22 03:28 Micro: Microbiology 11/09/22 11:42 Blood Culture - Preliminary Blood NEGATIVE TO DATE 11/09/22 11:50 Blood Culture - Preliminary Blood NEGATIVE TO DATE 11/10/22 06:30 MRSA Culture - Final Nose A&P Assessment and plan (1) Portal vein thrombosis: (2) Lesion of liver: (3) Diverticulitis: (4) Ulcerative colitis: (5) GERD (gastroesophageal reflux disease): (6) ROCK (obstructive sleep apnea): (7) Depression: (8) Chronic steroid use: (9) Adrenal insufficiency: Plan #Sepsis secondary to diverticulitis versus unknown source (hypotension, tachycardia, low temp, O2 requirement, lactic acid) #Generalized weakness and fatigue #Abdominal pain #Chronic diarrhea #Liver lesions, most likely metastatic disease? #Portal vein thrombosis #Hypertension #Hypothyroidism #Obstructive sleep apnea #Chronic steroid use ? Continue on IV fluids 125 cc/h. Give additional NS bolus. ? Patient will need biopsy of liver lesion for diagnosis ? Continue on therapeutic Lovenox twice daily ? Check INR. 1.17 ? Check hepatitis profile. Negative ? Hold amlodipine, atorvastatin, carvedilol, celecoxib ? Continue duloxetine ? Hold ezetimibe ? Continue levothyroxine ? Hold olmesartan ? Continue pantoprazole ? Continue CPAP at night with oxygen ? Check blood culture, urine culture, sputum culture gram stain. Negative to date. ? Continue to trend lactic acid. Lactic acid normalized. -Check iron panel, TIBC, ferritin ? Check CA 19?9, CEA, AFP -Hydrocortisone 50 every 6. -Patient will need oncology follow-up at discharge. ? Peripheral smear requested and also sent for flow cytometry to rule out leukemia/lymphoma. Full code DVT prophylaxis: On therapeutic Lovenox Attestations Medical Necessity Statement*: Will cross > 2 midnight stay for mgmt of divirticulitis, abdominal pain, liver lesions, portal vein thrombosis. Coding Level of Care Code Acute Roller Stainer for [facility] Diagnoses Portal vein thrombosis I81 Lesion of liver K76.9 Diverticulitis K57.92 Ulcerative colitis K51.90 GERD (gastroesophageal reflux disease) K21.9 ROCK (obstructive sleep apnea) G47.33 Depression F32.A Chronic steroid use Adrenal insufficiency E27.40
--- NOTE | 2022-11-10 15:25 | PC.NURSE ---
I reported the low 02 to the nurse. 85%on Room air
[2022-11-10] MEDS: pantoprazole 40 mg SDV IVP (15:55)
[2022-11-10 19:00] LABS: LAB Peripheral Smear Sent for Review
[2022-11-10] MEDS: hydrocortisone 100 mg/2 mL SDV 50 MG IVP (20:35)
[2022-11-11] VITALS (8 sets, daily range): BP systolic 117–166; BP diastolic 46–90; PULSE 70–80; RESP 16–20; TEMP 36.4–37.1; O2SAT 87–94
[2022-11-11] MEDS: sodium chloride 0.9% 1,000 ML 125 ML IV ×2 (05:04→12:51)
[2022-11-11] MEDS: metroNIDAZOLE IV 500 MG/100 ML PREMIX 100 MG IV ×3 (05:04→21:13)
[2022-11-11] MEDS: enoxaparin 100 mg/mL Syringe 90 MG SUBCUT ×2 (05:07→17:05)
[2022-11-11 08:57] LABS: Basophils # 0.1 10^3/uL (0.0-0.1); Basophils % 0.2 %; Eosinophils % 0.1 %; Hematocrit 30.5 % (37.0-47.0); Hemoglobin 9.8 g/dL (11.5-15.3); Lymphocytes # 1.5 10^3/uL (0.8-4.8); Lymphocytes % 5.4 %; Mean Corpuscular HGB Conc 32.1 g/dL (30.0-36.0); Mean Corpuscular Hemoglobin 28.1 pg (28.0-34.0); Mean Corpuscular Volume 87.4 fl (81-99); Monocytes # 0.7 10^3/uL (0.2-0.9); Monocytes % 2.6 %; Neutrophils # 25.23 10^3/uL (1.8-7.7); Neutrophils % 90.5 %; Nucleated Red Blood Cells % 0 %; Platelet Count 639 10^3/cmm (130-400); Red Blood Count 3.49 10^6/uL (4.1-5.3); Red Cell Distribution Width 15.9 % (12.1-15.1); White Blood Count 27.9 10^3/uL (4.0-10.0)
[2022-11-11 09:12] LABS: Anion Gap 12.4 (5-19); Blood Urea Nitrogen 14 mg/dL (8-23); Calcium 8.9 mg/dL (8.5-10.5); Carbon Dioxide 25 mmol/L (22-29); Chloride 108 mmol/L (98-107); Glucose 115 mg/dL (65-115); Osmolality Calculated 295 mOsm/kg (285-295); Potassium 3.4 mmol/L (3.5-5.1); Sodium 142 mmol/L (136-145)
[2022-11-11] MEDS: hydrocortisone 100 mg/2 mL SDV 50 MG IVP ×2 (09:45→21:26)
[2022-11-11] MEDS: levothyroxine 75 mcg Tablet PO (09:45)
[2022-11-11] MEDS: duloxetine 60 mg Capsule PO (09:45)
--- NOTE | 2022-11-11 10:10 | P.PN_ITS ---
Subjective Subjective: Seen this AM. Diarrhea has resolved. White count starting to trend down. Blood pressure better with stress dose steroids. Potassium 3.4 repleted. Vitals/I&O/Wt Last Vital Signs Temp 97.8 F 11/11/22 08:00 Pulse 76 11/11/22 08:00 Resp 17 11/11/22 08:00 BP 166/90 11/11/22 08:00 Pulse Ox 94 11/11/22 08:00 O2 Del Method 11/10/22 15:24 O2 Flow Rate 2 11/11/22 08:00 11/10/22 11/11/22 11/11/22 22:59 06:59 14:59 Intake Total 1689.167 / 2909.584 1381.250 / 4290.834 480 / 480 Output Total 400 / 400 600 / 1000 Balance 1289.167 / 2509.584 781.250 / 3290.834 480 / 480 Weight last 48 hrs Weight 92.986 kg Physical Exam Narrative: General: Alert oriented x3, patient seen laying in bed on 2L NC HEENT: Normocephalic, atraumatic, EOMI, breathing comfortably Cardio: Regular rate rhythm, normal S1-S2, Respiratory: Good bilateral air entry, no wheezes no rhonchi appreciated GI: Abdomen soft, nontender, nondistended, bowel sounds + Behavior: Appropriate and cooperative Extremities: Pulses 2+, no edema, no cyanosis Data 11/11/22 08:36 11/11/22 08:36 Micro: Microbiology 11/10/22 08:35 C.difficile Toxin B Gene (PCR) - Final Stool Routine Collection 11/09/22 11:42 Blood Culture - Preliminary Blood NEGATIVE TO DATE 11/09/22 11:50 Blood Culture - Preliminary Blood NEGATIVE TO DATE 11/10/22 06:30 MRSA Culture - Final Nose A&P Assessment and plan (1) Portal vein thrombosis: (2) Lesion of liver: (3) Diverticulitis: (4) Ulcerative colitis: (5) GERD (gastroesophageal reflux disease): (6) ROCK (obstructive sleep apnea): (7) Depression: (8) Chronic steroid use: (9) Adrenal insufficiency: Plan #Sepsis secondary to diverticulitis versus unknown source (hypotension, tachycardia, low temp, O2 requirement, lactic acid) #Generalized weakness and fatigue #Abdominal pain #Chronic diarrhea #Liver lesions, most likely metastatic disease? #Portal vein thrombosis #Hypertension #Hypothyroidism #Obstructive sleep apnea #Chronic steroid use ? Continue on IV fluids 125 cc/h. Give additional NS bolus. ? Patient will need biopsy of liver lesion for diagnosis ? Continue on therapeutic Lovenox twice daily ? Check INR. 1.17 ? Check hepatitis profile. Negative ? Hold amlodipine, atorvastatin, carvedilol, celecoxib ? Continue duloxetine ? Hold ezetimibe ? Continue levothyroxine ? Hold olmesartan ? Continue pantoprazole ? Continue CPAP at night with oxygen ? Check blood culture, urine culture, sputum culture gram stain. Negative to date. ? Continue to trend lactic acid. Lactic acid normalized. -Check iron panel, TIBC, ferritin ? Check CA 19?9, CEA, AFP?all negative. -Hydrocortisone 50 every 6.. Stop steroids. Transition to home dose budesonide p.o. daily. Will discuss with pharmacy regarding dosage -Patient will need oncology follow-up at discharge. ? Peripheral smear requested and also sent for flow cytometry to rule out leukemia/lymphoma. LIver biopsy on saturday Full code DVT prophylaxis: On therapeutic Lovenox Attestations Medical Necessity Statement*: Will cross > 2 midnight stay for mgmt of divirticulitis, abdominal pain, liver lesions, portal vein thrombosis. Coding Level of Care Code Acute Anesthesiology Technologist for [facility] Fwd Diagnoses Portal vein thrombosis I81 Lesion of liver K76.9 Diverticulitis K57.92 Ulcerative colitis K51.90 GERD (gastroesophageal reflux disease) K21.9 ROCK (obstructive sleep apnea) G47.33 Depression F32.A Chronic steroid use Adrenal insufficiency E27.40
[2022-11-11] MEDS: ciprofloxacin 400 MG/200 ML PREMIX 200 MG IV ×2 (10:29→23:49)
[2022-11-11] MEDS: pantoprazole 40 mg SDV IVP (15:08)
[2022-11-11] MEDS: ALPRAZolam 0.5 mg Tablet 0.25 MG PO (21:13)
[2022-11-12] VITALS (12 sets, daily range): BP systolic 128–165; BP diastolic 72–95; PULSE 66–90; RESP 16–24; TEMP 36.4–37.1; O2SAT 84–96
[2022-11-12 02:08] LABS: Basophils # 0.1 10^3/uL (0.0-0.1); Basophils % 0.2 %; Eosinophils % 0.1 %; Hematocrit 31.5 % (37.0-47.0); Hemoglobin 9.8 g/dL (11.5-15.3); Lymphocytes # 1.1 10^3/uL (0.8-4.8); Lymphocytes % 4.6 %; Mean Corpuscular HGB Conc 31.1 g/dL (30.0-36.0); Mean Corpuscular Hemoglobin 27.4 pg (28.0-34.0); Mean Platelet Volume 9.1 fL (7.4-10.4); Monocytes # 0.7 10^3/uL (0.2-0.9); Monocytes % 3.1 %; Neutrophils # 21.54 10^3/uL (1.8-7.7); Neutrophils % 89.9 %; Nucleated Red Blood Cells % 0 %; Platelet Count 569 10^3/cmm (130-400); Red Blood Count 3.58 10^6/uL (4.1-5.3); White Blood Count 23.9 10^3/uL (4.0-10.0)
[2022-11-12] MEDS: enoxaparin 100 mg/mL Syringe 90 MG SUBCUT (05:11)
[2022-11-12] MEDS: sodium chloride 0.9% 1,000 ML 75 ML IV ×2 (05:11→14:33)
[2022-11-12] MEDS: metroNIDAZOLE IV 500 MG/100 ML PREMIX 100 MG IV ×3 (05:12→20:57)
--- NOTE | 2022-11-12 05:20 | PM.PN ---
Subjective Subjective: Patient is awaiting liver biopsy on Saturday Leukocytosis trending down No fever Patient is stating that she would like to discuss with Dr. Abdul first before pursuing liver biopsy at this institution because is convincing her to go to [place] Vitals/I&O/Wt Last Vital Signs Temp 98.7 F 11/12/22 04:00 Pulse 88 11/12/22 04:00 Resp 17 11/12/22 04:00 BP 165/95 11/12/22 04:00 Pulse Ox 91 11/12/22 04:00 O2 Del Method 11/10/22 15:24 O2 Flow Rate 2 11/11/22 08:00 11/11/22 11/11/22 11/12/22 14:59 22:59 06:59 Intake Total 1615.417 / 7964.764 5380.000 / 3195.417 150 / 3345.417 Output Total 600 / 600 800 / 1400 850 / 2250 Balance 1015.417 / 1015.417 780.000 / 1795.417 -700 / 1095.417 Physical Exam Narrative: Patient is sitting at the bedside No signs of jaundice Awake and alert Euvolemic No active pain S1, S2 Nonfocal neuro exam Doing well on room air Pleasant and cooperative Data 11/12/22 01:44 11/11/22 08:36 A&P Assessment and plan (1) Chronic steroid use: (2) Adrenal insufficiency: (3) H/O partial thyroidectomy: (4) Portal vein thrombosis: (5) Lesion of liver: (6) Portal vein thrombosis: (7) Ulcerative colitis: Plan Continue ciprofloxacin and Flagyl for diverticulitis Multiple liver lesions on CT scan noted awaiting biopsy on Saturday Portal vein thrombosis currently on therapeutic Lovenox which I will discontinue today for the biopsy tomorrow AC profile, continue no further colitis history could be colon cancer related changes, , patient will need outpatient colonoscopy Dr. Abdul to rule in primary Tumor markers unremarkable so far PT, 19/ unremarkable CEA unremarkable Leukocytosis trending down Currently tolerating GI soft diet Endorsing anorexia Secondary to poor p.o. intake continue IV fluids Portal vein thrombosis anticoagulation on hold in anticipation of liver biopsy tomorrow Attestations Medical Necessity Statement*: Awaiting liver biopsy tomorrow Time Spent in Patient Care: 20 Coding Level of Care Code Acute Outside Sales Advertising Executive for [facility] Fwd Diagnoses Chronic steroid use Adrenal insufficiency E27.40 H/O partial thyroidectomy E89.0 Portal vein thrombosis I81 Lesion of liver K76.9 Portal vein thrombosis I81 Ulcerative colitis K51.90
[2022-11-12] MEDS: levothyroxine 75 mcg Tablet PO (09:14)
[2022-11-12] MEDS: duloxetine 60 mg Capsule PO (09:14)
--- NOTE | 2022-11-12 10:10 | PC.SOCIAL ---
Imm update Imm updated at bedside, copy of page 2 provided. Patient verbalized understanding. Copy in chart initialed, dated and timed.
--- NOTE | 2022-11-12 11:52 | PC.NURSE ---
B2B SALES EXECUTIVE notified this nurse patients oxygen was decreased to 87% on RA, this nurse to bedside placed on 2L NC, monitored for oxygen to be above 90% then notified RT.
[2022-11-12] MEDS: ciprofloxacin 400 MG/200 ML PREMIX 200 MG IV ×2 (12:26→22:58)
[2022-11-12] MEDS: pantoprazole 40 mg SDV IVP (14:30)
[2022-11-12 14:40] LABS: INR 1.21 (0.8-1.2)
[2022-11-12 14:41] LABS: Fibrinogen 848 mg/dL (174-498)
[2022-11-12 14:44] LABS: D Dimer 2.17 ug/mIFEU (0-0.59)
--- NOTE | 2022-11-12 18:36 | PC.NURSE ---
Dr. Stout made aware patient requesting Xanax to aide with sleeping, patient reported she had taken is previous night for nervous feeling and she was able to sleep well, received new order for Xanax, see MAR for further details.
[2022-11-12] MEDS: ALPRAZolam 0.5 mg Tablet 0.25 MG PO (20:56)
--- NOTE | 2022-11-12 22:16 | PC.NURSE ---
Rounded on patient and found patient on CPAP with oxygen saturation running mid-to-low 70s. Patient was sat up and questioned if patient felt like she was getting enough oxygen. Patient stated that the night before, patient was placed on 5L rather than the 2L that patient was on. Oxygen was dialed up to 5L and oxygen saturation came up to mid-to-high 80s. Respiratory was contacted and informed of status. Patient stated no further needs at this time.
--- NOTE | 2022-11-12 22:33 | PC.NURSE ---
Patient rounded on to check oxygen status and remains in low 80s, even after placed on 5L CPAP. Respiratory was called and informed this nurse that they would be up in a few minutes. Patient resting comfortably in bed, bed locked in lowest position with two side rails up and call light within reach.
--- NOTE | 2022-11-12 23:03 | PC.NURSE ---
Patient's oxygen saturation now in 90s after visit from respiratory therapist. Patient resting comfortably in bed with both side rails up, bed locked in lowest position with call light within reach.
[2022-11-13] VITALS (21 sets, daily range): BP systolic 131–172; BP diastolic 75–111; PULSE 60–96; RESP 16–22; TEMP 36.3–36.9; O2SAT 80–97
--- NOTE | 2022-11-13 00:49 | ECG_ITS ---
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 Measurements Intervals [place] Rate: 89 P: 57 [place]: 184 QRS: -26 QRSD: 111 T: 97 QT: 353 QTc: 430 Interpretive Statements SINUS RHYTHM ANTEROSEPTAL MYOCARDIAL INFARCTION , OF INDETERMINATE AGE [40+ ms Q WAVE IN V1-V4] Compared to ECG 11/09/2022 16:55:47 No significant changes Electronically Signed On 11-13-2022 14:11:57 DIPLOMA MEDICAL ASSISTANT by Tariq Burton M.D. [id number]
--- NOTE | 2022-11-13 00:56 | PC.NURSE ---
Patient was up to restroom and heart rate on telemetry showed was in the 150s and appeared irregular. EKG was performed on patient once patient was back in bed and showed sins rhythm, unchanged from previous EKG results. Patient now resting in bed, heart rate back in 80s.
[2022-11-13] MEDS: metroNIDAZOLE IV 500 MG/100 ML PREMIX 100 MG IV (05:18)
--- NOTE | 2022-11-13 10:00 | US_ITS ---
WS: [id number] ULTRASOUND GUIDED BIOPSY LIVER. HISTORY: Multiple hypoechoic masses within the liver previously described by CT. Unknown etiology. Procedure, risks, and complications are explained to the patient. Consent was obtained. Skin is clean sed with ChloraPrep and anesthetized with 1% buffered lidocaine. Abnormal liver. There are multiple hypoechoic masses within the LEFT lobe of the liver. These were pr eviously described by CT. There is also thrombosed LEFT portal vein which is identified. No ascites. The lesion along the surface of the LEFT lobe of the liver is targeted for biopsy. 4 core biopsies ar e obtained without complication. Conscious sedation was utilized. No bleeding. Patient will be observ ed for 2 hours post procedure. Liver specimen is placed within formalin. US/US biopsy liver [id number] IMPRESSION: 1. Uncomplicated liver biopsy of the mass in the LEFT lobe of the liver. 2. Specimen placed in formalin for pathology.
[2022-11-13] MEDS: sodium chloride 0.9% 1,000 ML 30 ML IV (10:20)
[2022-11-13] MEDS: fentaNYL 50 mcg/mL INJ 2mL 25 MCG IVP (10:30)
[2022-11-13] MEDS: midazolam 1 mg/mL INJ 2 mL IVP (10:30)
--- NOTE | 2022-11-13 12:03 | P.DS_ITS ---
Discharge Providers Date of Admission: 11/09/22 15:43 Date of Discharge: November 13, 2022 Attending Provider at Admission: Jessica Longoria MD Attending Provider at Discharge: Mika Stout MD Diagnoses at Discharge Discharge Diagnosis (1) Chronic steroid use: Status: Acute (2) Adrenal insufficiency: Status: Acute (3) H/O partial thyroidectomy: Status: Acute (4) Portal vein thrombosis: Status: Acute (5) Lesion of liver: Status: Acute (6) Portal vein thrombosis: Status: Acute (7) Ulcerative colitis: Status: Acute Reason for Visit Reason for Visit: n/v/d Hospital Course Hospital Course 77-year-old female who was sent to the hospital for worsening abdominal pain, she was diagnosed with portal vein thrombosis, sepsis related to diverticulitis which improved with IV antibiotics and IV fluid resuscitation. Cultures remain negative. She remained hemodynamically stable, CT scan of abdomen pelvis showed diverticulitis and multiple lesions on her liver consistent with possible metastatic etiology. Patient stating her last colonoscopy was roughly 8 years ago, considering ulcerative colitis she is due for another colonoscopy. Her tumor markers have been unremarkable. Liver biopsy was done on 11/[address] Dhillon. She is diagnosed with portal vein thrombosis for which she required Lovenox therapeutic regimen in the hospital and will receive Eliquis at the time of discharge. Patient to follow-up with Dr. Abdul for colonoscopy. I have discontinued her atorvastatin, ezetimibe and coenzyme every 10 along celecoxib. Her white count is high but she is on chronic steroids she takes budesonide white count at the time of discharge 23.9 which is trending down from 33.7 on day of admission. Physical Exam Narrative: Patient laying supine without any acute discomfort No signs of jaundice Awake and alert Euvolemic No active pain S1, S2 Nonfocal neuro exam Doing well on room air Pleasant and cooperative ? Discharge Data Studies Completed and Pending Completed Studies During Hospitalization Category Date Time Status CT abdomen pelvis w con* [id number] Stat Cat Scan 11/09/22 11:01 Completed XR chest 1V portable [id number] Stat Exams 11/09/22 10:17 Completed Pending at discharge Category Date Time Status Blood Culture Stat Lab 11/09/22 11:50 Results Sputum Culture and Gram Stain Stat Lab 11/11/22 05:00 Ordered Pathology: Surgical [PTH] Routine Pth 11/13/22 10:49 Received US biopsy liver [id number] Routine Ultrasound 11/13/22 10:00 Taken Radiology Impressions Chest X-Ray 11/09/22 10:17 IMPRESSION: 1. No acute cardiopulmonary finding. Mild cardiac enlargement. Abdomen/Pelvis CT 11/09/22 11:01 IMPRESSION: 1. Numerous heterogeneously enhancing lesions within the LEFT hepatic lobe extending into the medial segment RIGHT hepatic lobe suspicious for metastatic disease. 2. Occlusive thrombus involving the LEFT portal vein extending to the portal confluence with peripheral enhancement suspicious for tumor thrombus. 3. A few prominent lymph nodes in the bull hepatis with enhancement the largest measuring 8 to 9 mm. Recommend metastatic workup. 4. Small esophageal hiatal hernia. 5. Sigmoid diverticulosis with mild sigmoid colon thickening and slight surrounding induration suspicious for mild or early diverticulitis. Trace free fluid in the pelvis. 6. No other suspicious findings. Notified MITUL Graham at 11/09/2022 12:47 PM. Laboratory Results WBC 23.9 10^3/uL (4.0-10.0) H 11/12/22 01:44 RBC 3.58 10^6/uL (4.1-5.3) L 11/12/22 01:44 Hgb 9.8 g/dL (11.5-15.3) L 11/12/22 01:44 Hct 31.5 % (37.0-47.0) L 11/12/22 01:44 MCV 88.0 fl (81-99) 11/12/22 01:44 MCH 27.4 pg (28.0-34.0) L 11/12/22 01:44 MCHC 31.1 g/dL (30.0-36.0) 11/12/22 01:44 RDW 16.0 % (12.1-15.1) H 11/12/22 01:44 Plt Count 569 10^3/cmm (130-400) H 11/12/22 01:44 MPV 9.1 fL (7.4-10.4) 11/12/22 01:44 Neut % (Auto) 89.9 % 11/12/22 01:44 Lymph % (Auto) 4.6 % 11/12/22 01:44 [place] % (Auto) 3.1 % 11/12/22 01:44 Eos % (Auto) 0.1 % 11/12/22 01:44 Baso % (Auto) 0.2 % 11/12/22 01:44 Neut # (Auto) 21.54 10^3/uL (1.8-7.7) H 11/12/22 01:44 Lymph # (Auto) 1.1 10^3/uL (0.8-4.8) 11/12/22 01:44 [place] # (Auto) 0.7 10^3/uL (0.2-0.9) 11/12/22 01:44 Eos # (Auto) 0.0 10^3/uL (0.0-0.8) 11/12/22 01:44 Baso # (Auto) 0.1 10^3/uL (0.0-0.1) 11/12/22 01:44 Nucleated RBC % (auto) 0 % 11/12/22 01:44 Nucleated RBCs # 0.0 /100WBC 11/12/22 01:44 PT 15.70 SECONDS (12.1-14.9) H 11/12/22 14:00 INR 1.21 (0.8-1.2) H 11/12/22 14:00 APTT 38.0 SECONDS (23.9-36.7) H 11/12/22 14:00 Fibrinogen 848 mg/dL (174-498) H 11/12/22 14:00 Fibrin Degrad Products Neg, <10 ug/mL (NEG) 11/12/22 14:00 D-Dimer 2.17 ug/mIFEU (0-0.59) H 11/12/22 14:00 Sodium 142 mmol/L (136-145) 11/11/22 08:36 Potassium 3.4 mmol/L (3.5-5.1) L 11/11/22 08:36 Chloride 108 mmol/L (98-107) H 11/11/22 08:36 Carbon Dioxide 25 mmol/L (22-29) 11/11/22 08:36 Anion Gap 12.4 (5-19) 11/11/22 08:36 BUN 14 mg/dL (8-23) 11/11/22 08:36 Creatinine 0.6 mg/dL (0.5-0.9) 11/11/22 08:36 GFR Calculation Not Reportable 11/11/22 08:36 Glucose 115 mg/dL (65-115) 11/11/22 08:36 Calculated Osmolality 295 mOsm/kg (285-295) 11/11/22 08:36 Lactic Acid 1.5 mmol/L (0.5-2.2) 11/09/22 17:35 Lactic Acid (Sepsis) 1.7 mmol/L (0.5-2.2) 11/09/22 13:31 Calcium 8.9 mg/dL (8.5-10.5) 11/11/22 08:36 Magnesium 1.9 mg/dL (1.7-2.3) 11/10/22 03:28 Iron 20 ug/dL (37-145) L 11/09/22 10:24 Iron 21 ug/dL (37-145) L 11/09/22 10:24 TIBC 174 mcg/dl 11/09/22 10:24 % Saturation 11.4 % (20-50) L 11/09/22 10:24 Unsat Iron Binding 154 ug/dL (112-347) 11/09/22 10:24 Ferritin 1882 ng/mL (15-150) H 11/09/22 10:24 Total Bilirubin 0.3 mg/dL (0.15-1.2) 11/10/22 03:28 GGT 126 U/L (5-36) H 11/09/22 10:24 AST 38 U/L (0-32) H 11/10/22 03:28 ALT 71 U/L (0-33) H 11/10/22 03:28 Alkaline Phosphatase 253 U/L (35-105) H 11/10/22 03:28 Troponin T Baseline 39 ng/L (0-10) H 11/09/22 10:24 Troponin T 120 Minute 41.11 ng/L (0-10) H 11/09/22 12:20 Delta Troponin T 2.11 ABS# (0-10) 11/09/22 12:20 Troponin T Hi Sens 6Hr 23.14 ng/L (0-10) H 11/09/22 17:35 Troponin T Hi Sens 6Hr Delta -15.86 ng/L (0-12) L 11/09/22 17:35 Total Protein 5.6 g/dL (6.6-8.7) L 11/10/22 03:28 Albumin 2.3 g/dL (3.5-5.2) L 11/10/22 03:28 Globulin 3.3 g/dL (1.3-4.6) 11/10/22 03:28 Triglycerides 126 mg/dL (0-150) 11/09/22 10:24 Cholesterol 90 mg/dL (0-200) 11/09/22 10:24 LDL Cholesterol, Calc 43 mg/dL (50-129) L 11/09/22 10:24 HDL Cholesterol 22 mg/dL (60-100) L 11/09/22 10:24 LDL/HDL Ratio 1.95 RATIO (0.00-3.22) 11/09/22 10:24 Cholesterol/HDL Ratio 4.09 mg/dL (0.0-4.40) 11/09/22 10:24 Lipase 38 U/L (13-60) 11/09/22 10:24 Tumor Marker AFP 2.5 ng/mL (0-8.3) 11/09/22 10:24 Carcinoembryonic Ag 2.3 ng/mL (0.0-4.7) 11/09/22 10:24 CA 19-9 Antigen 4.91 U/mL (0-35) 11/09/22 10:24 Procalcitonin 2.94 ng/mL (0-0.5) H 11/09/22 10:24 TSH 8.71 uIU/mL (0.27-4.20) H 11/09/22 10:24 Urine Color Barb (Yellow) 11/09/22 12:52 Urine Appearance Cloudy (CLEAR) A 11/09/22 12:52 Urine pH 5 (5-7) 11/09/22 12:52 Ur Specific [place] 1.000 (1.005-1.030) L 11/09/22 12:52 Urine Protein 1+ (Negative) H 11/09/22 12:52 Urine Glucose (UA) Norm (Normal) 11/09/22 12:52 Urine Ketones 1+ (Negative) H 11/09/22 12:52 Urine Blood Trace (Negative) H 11/09/22 12:52 Urine Nitrate Negative (Negative) 11/09/22 12:52 Urine Bilirubin 1+ (Negative) H 11/09/22 12:52 Urine Urobilinogen 1 mg/dL (Negative) H 11/09/22 12:52 Ur Leukocyte Esterase Trace (Negative) H 11/09/22 12:52 Urine RBC 0-4 /hpf (0-2) H 11/09/22 12:52 Urine WBC 5-10 /hpf (0-5) H 11/09/22 12:52 Ur Squamous Epith Cells 5-10 /hpf (0-5) H 11/09/22 12:52 Amorphous Sediment Not Reportable 11/09/22 12:52 Urine Bacteria Trace /hpf (NONE) 11/09/22 12:52 Coronavirus 229E (PCR) Not detected (NOT DETECT) 11/09/22 15:45 Hepatitis A IgM Ab Non-reactive (Nonreactive) 11/09/22 13:31 Hep Bs Antigen Non-reactive (Nonreactive) 11/09/22 13:31 Hep Bs Antibody 3.5 (11.5-1000) L 11/09/22 13:31 Hep B Core Total Ab Non-reactive (Nonreactive) 11/09/22 13:31 Hepatitis C Antibody Non-reactive (Nonreactive) 11/09/22 13:31 SARS-CoV-2 (PCR) Not detected (NOT DETECT) 11/09/22 15:45 Vitals Last Vital Signs Temp 97.5 F L 11/13/22 10:52 Pulse 78 11/13/22 11:55 Resp 16 11/13/22 11:55 BP 145/96 11/13/22 11:55 Pulse Ox 94 11/13/22 11:55 O2 Del Method 11/13/22 11:55 O2 Flow Rate 2 11/13/22 11:25 FiO2 21 11/12/22 09:56 Discharge Plan Discharge Patient Disposition: Home Condition: Stable Prescriptions: New ciprofloxacin HCl 500 mg tablet 500 mg PO BID Qty: 10 0RF metronidazole 500 mg tablet 500 mg PO Q8H 5 Days Qty: 15 0RF Eliquis 5 mg tablet 5 mg PO BID 90 Days Qty: 180 3RF Continued carvedilol 25 mg Tablet 25 mg PO BID Rx Instructions: must administer with a meal/food amlodipine 5 mg Tablet 5 mg PO DAILY Synthroid 75 mcg Tablet 75 mcg PO DAILY pantoprazole 40 mg Tablet,Delayed Release (Dr/Ec) 40 mg PO DAILY magnesium 200 mg Tablet 200 mg PO DAILY olmesartan 40 mg Tablet 40 mg PO DAILY Vitamin D3 50 mcg (2,000 unit) Capsule 50 mcg PO DAILY budesonide 9 mg Capsule, Extended Release 27 mg PO DAILY duloxetine 60 mg Capsule,Delayed Release(Dr/Ec) 60 mg PO DAILY Discontinued celecoxib 200 mg Capsule 200 mg PO BID atorvastatin 40 mg Tablet 40 mg PO QPM ezetimibe 10 mg Tablet 10 mg PO DAILY coQ10 (ubiquinol) 100 mg Capsule 100 mg PO BID Discharge Orders: Discharge Order (Routine); Ordered 11/13/22 Ordered By: Mika Stout Discharge Diet: Cardiac Discharge Activity: Increase activity as tolerated Patient Instructions: Ciprofloxacin (By mouth), Metronidazole (By mouth), Apixaban (By mouth), Opioid Safety Discharge Attestations Time Spent in Discharge Care*: less than 30 min Quality Metrics Clinical Quality Measures [ No reported AMI, CVA or VTE this stay] Coding Level of Care Code Acute Chg FW DC note Diagnoses Chronic steroid use Adrenal insufficiency E27.40 H/O partial thyroidectomy E89.0 Portal vein thrombosis I81 Lesion of liver K76.9 Portal vein thrombosis I81 Ulcerative colitis K51.90
[2022-11-13] MEDS: levothyroxine 75 mcg Tablet PO (13:31)
[2022-11-13] MEDS: duloxetine 60 mg Capsule PO (13:31)
[2022-11-15 06:38] LABS: Leukemia Profile (BBPL) See Report; Lymphoma Profile (BBPL) See Report
== END 2022-11-13 16:21 | disposition home or self-care (01) | DRG 871 ==
LOC: ER 13:36 → MEDSURG 15:44
PROVIDERS: Physician Assistant; Radiology Diagnostic Radiology; Admitting Provider Internal Medicine; Emergency Provider Emergency Medicine; Visit Provider Internal Medicine
PROC: 0FB23ZX Excision of Left Lobe Liver, Percutaneous Approach, Diagnostic (ICD-10-PCS; principal; 2022-11-13 10:00)
DX: A41.9 Sepsis, unspecified organism (principal); I81 Portal vein thrombosis; K57.32 Diverticulitis of large intestine without perforation or abscess without bleeding; E27.40 Unspecified adrenocortical insufficiency; K76.9 Liver disease, unspecified; Z79.52 Long term (current) use of systemic steroids; E89.0 Postprocedural hypothyroidism; G47.33 Obstructive sleep apnea (adult) (pediatric); K21.9 Gastro-esophageal reflux disease without esophagitis; F32.A Depression, unspecified; Z99.89 Dependence on other enabling machines and devices; K44.9 Diaphragmatic hernia without obstruction or gangrene; I95.9 Hypotension, unspecified
CPT/HCPCS: 36415; 47000; 71045; 74177; 76942; 80048; 80053; 80061; 80503; 81001; 82105; 82378; 82728; 82977; 83540; 83550; 83605; 83690; 83735; 84145; 84443; 84484; 85025; 85362; 85378; 85384; 85610; 85730; 86301; 86705; 86706; 86709; 86803; 87040; 87340; 87493; 87635; 87641; 88184; 88185; 88307; 88312; 88342; 93005; 94664; 96365; 96367; 96372; 96374; 96375; 99285; C9113; J0744; J1650; J1720; J2250; J3010; J3490; J7030; Q9967

== ENCOUNTER 2023-05-23 10:00 | Outpatient (CLI) | payer MEDICARE, SELFPAY ==
--- NOTE | 2023-05-23 10:05 | CT_ITS ---
WS: [id number] CT ABDOMEN PELVIS TECHNIQUE: Contrast-enhanced CT of the abdomen and pelvis with coronal and sagittal reformatted image s. CLINICAL INFORMATION: ABNORMAL COMPUTERIZED AXIAL TOMOGRAPY OF LIVER COMPARISON: None. DLP: 730.[address] scans at [facility] use at least one of these dose optimization techniques: automated e xposure control; mA and/or kV adjustment per patient size (includes targeted exams where dose is matc hed to clinical indication); or iterative reconstruction. FINDINGS: Previously described lesions LEFT hepatic lobe have essentially resolved compared to previous. Tiny l ow-attenuation residual lesion in this location measuring 10 mm. Chronic thrombosis of the LEFT bull l vein is persistent. Main portal vein and RIGHT portal vein are normal. Splenic vein is normal. Tiny esophageal hiatal hernia. Normal gallbladder. Normal pancreatic parenchymal enhancement. Normal spleen. Adrenal glands are normal. Normal renal par enchymal enhancement. No hydronephrosis. A few tiny renal cysts. Some are too small to characterize. Normal caliber abdominal aorta. Celiac and SMA are patent. Tiny fat-containing umbilical hernia. Previously described induration involving the sigmoid colon wit h surrounding inflammatory stranding has improved. Thickening of the sigmoid colon with extensive div erticulosis. No definite evidence of acute diverticulitis today. Remainder of the colon is decompressed. Previously described prominent lymph nodes in the bull hepat is have resolved. Tiny fat-containing umbilical hernia. Slight anterolisthesis L4 on L5. Disc space n arrowing worse L5-S1. Chronic anterior wedging in the lower thoracic spine. CT/CT abdomen pelvis w con* [id number] IMPRESSION: 1. Previous described hepatic lesions have essentially resolved compared to pr evious. 2. Enlargement of the RIGHT hepatic lobe is similar in appearance. 3. Previously described bull hepatis lymph nodes have resolved. 4. Chronic thrombosis of the LEFT portal vein. 5. Small esophageal hiatal hernia. 6. Diffuse thickening of the sigmoid colon with extensive diverticulosis. This has a chronic appearance similar to previous. No definite evidence of acute di verticulitis today. No fluid collections. 7. No other suspicious findings.
[2023-05-23] MEDS: iohexol 350 mg/mL 500 mL Btl (per mL) IV (10:37)
== END 2023-05-23 10:01 | disposition home or self-care (01) ==
LOC: RAD 10:01
PROVIDERS: Visit Provider Internal Medicine
DX: R93.2 Abnormal findings on diagnostic imaging of liver and biliary tract (principal); I81 Portal vein thrombosis; K57.30 Diverticulosis of large intestine without perforation or abscess without bleeding
CPT/HCPCS: 74177; Q9967

== ENCOUNTER → 2025-10-21 10:59 | Outpatient (BNVA) | payer MEDICARE, SELFPAY | PROVIDERS: Visit Provider Dermatology | DX: L60.8 Other nail disorders (principal); L73.8 Other specified follicular disorders; L82.1 Other seborrheic keratosis; L82.0 Inflamed seborrheic keratosis; L53.8 Other specified erythematous conditions; R20.8 Other disturbances of skin sensation; L57.0 Actinic keratosis | CPT/HCPCS: 17000; 17110; 99203 ==